=== PATIENT | male | born 1935 | race Caucasian/White ===

== ENCOUNTER → 2016-11-01 | Outpatient (CLI) | payer OTHER | LOC: BMCIMAGING 16:57 | PROVIDERS: ATTEND Family Medicine | DX: S69.91XA Unspecified injury of right wrist, hand and finger(s), initial encounter (principal) ==

== ENCOUNTER → 2017-01-24 | Outpatient (CLI) | payer OTHER | LOC: BMCIMAGING 11:31 | PROVIDERS: ATTEND Family Medicine | DX: R53.83 Other fatigue (principal); R50.9 Fever, unspecified ==

== ENCOUNTER 2017-03-16 20:22 | Observation (INO) | payer OTHER ==
--- NOTE | 2017-03-16 20:42 | CPEKG ---
Heart Rate: 83 RR Interval: 723 P-R Interval: 200 QRSD Interval: 82 QT Interval: 352 QTC Interval: 414 P Castaner: -60 QRS Castaner: -1 T Wave Castaner: 40 EKG Severity - OTHERWISE NORMAL ECG - EKG Impression: SINUS OR ECTOPIC ATRIAL RHYTHM Electronically Signed By: Toni Marrero 16-Mar-2017 22:41:12
--- NOTE | 2017-03-16 20:49 | EDPHY ---
H & P Stated Complaint: c/o rapid HR at night, saw pcp started holter monitor today. Time Seen by Provider: 03/16/17 20:44 - Personal History Tetanus Vaccine Date: 2013 - Medical/Surgical History Hx Asthma: No Hx Chronic Respiratory Disease: No Hx Diabetes: No Hx Cardiac Disease: No Hx Renal Disease: No Hx Cirrhosis: No Hx Alcoholism: No Hx HIV/AIDS: No Hx Splenectomy or Spleen Trauma: No Other PMH: HTN, GERD, inguanal hernias - Social History Smoking Status: Never smoked Constitutional: Initial Vital Signs Temperature (C) 37 C 03/16/17 20:27 Heart Rate 95 03/16/17 20:27 Respiratory Rate 16 03/16/17 20:27 Blood Pressure 161/86 H 03/16/17 20:27 O2 Sat (%) 93 03/16/17 20:27 O2 Delivery Mode Room Air Allergies/Adverse Reactions: No Known Allergies Allergy (Unverified 07/03/10 21:19) Home Medications: Medication Instructions Recorded Atorvastatin Calcium [Lipitor 10 10 mg PO DAILY 01/05/15 mg (*)] Cholecalciferol Vit D3 [Vitamin D3 1,000 units PO DAILY 01/05/15 (*)] Multivitamins [Multivitamin (*)] 1 each PO DAILY 01/05/15 Diltiazem Xr [Dilacor Xr] 240 mg PO DAILY 03/16/17 Ibuprofen [Advil] 200 mg PO HS 03/16/17 Lisinopril [Zestril 40 mg (*)] 40 mg PO DAILY 03/16/17 Omeprazole [Prilosec 20 mg] 20 - 40 mg PO DAILY PRN 03/16/17 Psyllium Husk (with Sugar) 2 each PO HS 03/16/17 [Metamucil Packet] Ranitidine HCl [Zantac] 150 mg PO HS PRN 03/16/17 Medical Decision Making ED Course/Re-evaluation: CHIEF COMPLAINT: Rapid heart rate at night HISTORY OF PRESENT ILLNESS: This patient is an 82 year old male complaining of rapid heart rate in the evenings six times over the last 10 days. Estimates around 150bpm. He has had a couple prior episodes of tachycardia in the past, first noted when he was hospitalized three years ago for a complicated situation. He states he was checked for atrial fibrillation at that time, but evaluation was negative at that time. His current episodes area usually preceded by extreme fatigue. He endorses lightheadedness and dizziness. He has noted occasional irregularity in his heartbeat. He was evaluated by his primary care provider earlier today, and was given a Holter monitor. Lab work done at the time is still pending. The patient denies chest pain, shortness of breath, vomiting, or other associated symptoms. REVIEW OF SYSTEMS: A 10 point review of systems was performed and is negative with the exception of the elements mentioned in the history of present illness. PHYSICAL EXAM: General Appearance: Alert, well hydrated, appropriate, and non-toxic appearing. Head: Atraumatic without scalp tenderness or obvious injury Eyes: Pupils equal, round, reactive to light and accommodation, EOMI, no trauma , no injection. Ears: Clear bilaterally, no perforation, normal landmarks Nose: Atraumatic, no rhinorrhea, clear. Throat: There is no erythema or exudates, no lesions, normal tonsils, mucus membranes moist. Neck: Supple, non-tender, no lymphadenopathy. Respiratory: No retractions, no distress, no wheezes, and no accessory muscle use. Lungs are clear to auscultation bilaterally. Cardiovascular: Regular rate and rhythm, no murmurs, rubs, or gallops. Good capillary refill all extremities. Gastrointestinal: Abdomen is soft, non-tender, non-distended, no masses, no rebound, no guarding, no peritoneal signs. Musculoskeletal: Normal active ROM of all extremities, atraumatic. Neurological: Alert, appropriate, and interactive. Nonfocal neuro exam. Skin: No rashes, good turgor, no nodules on palpation. PAST MEDICAL HISTORY: Hypertension, GERD, inguinal hernias PAST SURGICAL HISTORY: Noncontributory FAMILY HISTORY: Significant for atrial fibrillation in mother. SOCIAL HISTORY: . at bedside. Lives in [place]. DIFFERENTIAL DIAGNOSIS: The differential diagnosis for the patient's narrow complex tachycardia included but was not limited to various causes of sinus tachycardia such as dehydration and medicines, SVT, atrial flutter, atrial fibrillation, pulmonary causes. MEDICAL DECISION MAKIN82 year old male presents with multiple episodes of rapid irregular heartbeat with associated lightheadedness and fatigue. Plan for EKG, labs including CBC, BMP, Troponin, BNP, and Mg. The 12 lead EKG was interpreted by myself. See hard copy and/or "tracemaster" electronic copy for interpretation. Rate 83. Sinus or ectopic atrial rhythm. Spoke with Dr. Whiting, hospitalist. He accepts admission for possible new onset atrial fibrillation. Departure - Departure Disposition: [facility] Inpatient Acute Clinical Impression: New onset atrial fibrillation, Dizziness, Episodic lightheadedness Condition: Fair Report Scribed for: Toni Marrero Report Scribed by: Sheri Lee Date of Report: 03/16/17 Time of Report: 20:48
[2017-03-16 21:40] LABS: % IMMATURE GRANULYOCYTES 0.2 % (0.0-1.1); ABSOLUTE IMMATURE GRANULOCYTES 0.01 10^3/uL (0.00-0.10); ADD DIFF? NO; ADD MORPH? NO; ADD SCAN? NO; ATYPICAL LYMPHOCYTE FLAG 10 (0-99); FRAGMENT RBC FLAG 0 (0-99); HEMATOCRIT 45.4 % (40.0-51.0); HEMOGLOBIN 15.9 g/dL (13.7-17.5); LEFT SHIFT FLG 0 (0-99); LIPEMIA HEMOLYSIS FLAG 90 (0-99); MEAN CELL VOLUME 94.2 fL (81.5-99.8); MEAN PLATELET VOLUME 9.3 fL (8.7-11.7); PLATELET CLUMPS FLAG 10 (0-99); PLATELET COUNT 225 10^3/uL (150-400); RED BLOOD CELL COUNT 4.82 10^6/uL (4.40-6.38); RED CELL DISTRIBUTION WIDTH 12.1 % (11.5-15.2)
[2017-03-16 21:54] LABS: ANION GAP 12 mEq/L (8-16); CALCIUM 9.7 mg/dL (8.5-10.4); CARBON DIOXIDE 23 mEq/l (22-31); CHLORIDE 103 mEq/L (97-110); CREATININE 0.7 mg/dL (0.7-1.3); GLOMERULAR FILTRATION RATE > 60; GLUCOSE 108 mg/dL (70-100); POTASSIUM 3.8 mEq/L (3.5-5.2); SODIUM 138 mEq/L (134-144)
[2017-03-16 22:06] LABS: TROPONIN I < 0.012 ng/mL (0.000-0.034)
[2017-03-16] MEDS ORDERED: ONDANSETRON DISINTEGRATING 4 MG TAB PO PRN (22:57)
[2017-03-16] MEDS ORDERED: ACETAMINOPHEN 325 MG TAB PO PRN (22:57)
[2017-03-16] MEDS ORDERED: ONDANSETRON 4 MG/2 ML VIAL IVP PRN (22:57)
--- NOTE | 2017-03-16 23:41 | PDGENHP ---
History and Physical - Chief Complaint Palpitations - History of Present Illness 82 yo M w/ hx of HTN presents with several episodes of palpitations. Patient reports noticing a fast heart rate 4 of the last 10 nights upon laying down to go to sleep. He went to his PCP today and had a Holter monitor placed. He returned home and felt recurrence of symptoms so he came to the ED, as instructed by his PCP. He denies chest pain or shortness of breath during these episodes. Additionally, he denies cough, orthopnea, POPE, and symptoms of recent infection. He denies prior history of heart problems or arrhythmias. History Information - Allergies/Home Medication List Allergies/Adverse Reactions: No Known Allergies Allergy (Unverified 07/03/10 21:19) Home Medications: Atorvastatin Calcium [Lipitor 10 mg (*)] 10 mg PO DAILY 01/05/15 [Last Taken ] Cholecalciferol Vit D3 [Vitamin D3 (*)] 1,000 units PO DAILY 01/05/15 [Last Taken 03/16/17] Multivitamins [Multivitamin (*)] 1 each PO DAILY 01/05/15 [Last Taken 03/16/17] Diltiazem Xr [Dilacor Xr] 240 mg PO DAILY 03/16/17 [Last Taken 03/16/17] Ibuprofen [Advil] 200 mg PO HS 03/16/17 [Last Taken 03/15/17] Lisinopril [Zestril 40 mg (*)] 40 mg PO DAILY 03/16/17 [Last Taken 03/16/17] Omeprazole [Prilosec 20 mg] 20 - 40 mg PO DAILY PRN 03/16/17 [Last Taken ] Psyllium Husk (with Sugar) [Metamucil Packet] 2 each PO HS 03/16/17 [Last Taken 03/15/17] Ranitidine HCl [Zantac] 150 mg PO HS PRN 03/16/17 [Last Taken Unknown] I have personally reviewed and updated: family history, medical history - Past Medical History hypertension - Family History Positive for: CAD - Social History Smoking Status: Never smoked Alcohol Use: Occasionally Drug Use: None Review of Systems ROS: 10pt was reviewed & negative except for what was stated in HPI & below Physical Exam Temp Pulse Resp BP Pulse Ox 37.0 C 64 18 152/93 H 94 08/14/17 23:24 03/16/17 23:24 03/16/17 23:24 03/16/17 23:24 03/16/17 23:24 Constitutional: no apparent distress, appears nourished Eyes: PERRL, EOMI Ears, Nose, Mouth, Throat: moist mucous membranes, no oral mucosal ulcers Cardiovascular: regular rate and rhythym, no murmur, rub, or gallop, No JVD, No edema Respiratory: no respiratory distress, clear to auscultation Gastrointestinal: normoactive bowel sounds, soft, non-tender abdomen Skin: warm, no rashes or abrasions Musculoskeletal: full muscle strength, no muscle tenderness Neurologic: AAOx3, CN II-XII Intact Psychiatric: interacting appropriately, not anxious Lab Data & Imaging Review 03/16/17 21:20 03/16/17 21:20 WBC 6.15 10^3/uL (3.80-9.50) 03/16/17 21:20 RBC 4.82 10^6/uL (4.40-6.38) 03/16/17 21:20 Hgb 15.9 g/dL (13.7-17.5) 03/16/17 21:20 Hct 45.4 % (40.0-51.0) 03/16/17 21:20 MCV 94.2 fL (81.5-99.8) 03/16/17 21:20 MCH 33.0 pg (27.9-34.1) 03/16/17 21:20 MCHC 35.0 g/dL (32.4-36.7) 03/16/17 21:20 RDW 12.1 % (11.5-15.2) 03/16/17 21:20 Plt Count 225 10^3/uL (150-400) 03/16/17 21:20 MPV 9.3 fL (8.7-11.7) 03/16/17 21:20 Neut % (Auto) 51.9 % (39.3-74.2) 03/16/17 21:20 Lymph % (Auto) 31.4 % (15.0-45.0) 03/16/17 21:20 Harding % (Auto) 11.9 % (4.5-13.0) 03/16/17 21:20 Eos % (Auto) 3.6 % (0.6-7.6) 03/16/17 21:20 Baso % (Auto) 1.0 % (0.3-1.7) 03/16/17 21:20 Nucleat RBC Rel Count 0.0 % (0.0-0.2) 03/16/17 21:20 Absolute Neuts (auto) 3.20 10^3/uL (1.70-6.50) 03/16/17 21:20 Absolute Lymphs (auto) 1.93 10^3/uL (1.00-3.00) 03/16/17 21:20 Absolute Monos (auto) 0.73 10^3/uL (0.30-0.80) 03/16/17 21:20 Absolute Eos (auto) 0.22 10^3/uL (0.03-0.40) 03/16/17 21:20 Absolute Basos (auto) 0.06 10^3/uL (0.02-0.10) 03/16/17 21:20 Absolute Nucleated RBC 0.00 10^3/uL (0-0.01) 03/16/17 21:20 Immature Gran % 0.2 % (0.0-1.1) 03/16/17 21:20 Immature Gran # 0.01 10^3/uL (0.00-0.10) 03/16/17 21:20 Sodium 138 mEq/L (134-144) 03/16/17 21:20 Potassium 3.8 mEq/L (3.5-5.2) 03/16/17 21:20 Chloride 103 mEq/L (97-110) 03/16/17 21:20 Carbon Dioxide 23 mEq/l (22-31) 03/16/17 21:20 Anion Gap 12 mEq/L (8-16) 03/16/17 21:20 BUN 16 mg/dL (7-23) 03/16/17 21:20 Creatinine 0.7 mg/dL (0.7-1.3) 03/16/17 21:20 Estimated GFR > 60 03/16/17 21:20 Glucose 108 mg/dL (70-100) H 03/16/17 21:20 Calcium 9.7 mg/dL (8.5-10.4) 03/16/17 21:20 Magnesium 2.0 mg/dL (1.6-2.3) 03/16/17 21:20 Troponin I < 0.012 ng/mL (0.000-0.034) 03/16/17 21:20 NT-Pro-B Natriuret Pep 87 pg/mL (0-450) 03/16/17 21:20 Visualized and Interpreted EKG results: Yes EKG Interpretation: Positive for: normal sinsus rhythm Assessment & Plan Assessment: 82 yo M w/ hx of HTN presenting with episodes of palpitations and tachycardia. Plan: 1. Palpitations - New problem, no prior diagnosis of SVT. ECG in NSR upon admission here, but patient does have Holter monitor in place, which should have captured his episode from earlier in the day. No symptoms to suggest ischemic etiology, troponin and BNP unremarkable. Review of prior records shows echocardiogram with only mild diastolic dysfunction in 2015. - Monitor on telemetry - Repeat echocardiogram - Cardiology consult 2. HTN - On Diltiazem and Lisinopril as an outpatient. Diet- Regular Code - Full Ppx - LMWH Dispo - Admit to observation
[2017-03-17 05:32] LABS: % IMMATURE GRANULYOCYTES 0.2 % (0.0-1.1); ABSOLUTE IMMATURE GRANULOCYTES 0.01 10^3/uL (0.00-0.10); ADD DIFF? NO; ADD MORPH? NO; ADD SCAN? NO; ATYPICAL LYMPHOCYTE FLAG 10 (0-99); FRAGMENT RBC FLAG 0 (0-99); HEMATOCRIT 43.6 % (40.0-51.0); HEMOGLOBIN 15.4 g/dL (13.7-17.5); LEFT SHIFT FLG 0 (0-99); LIPEMIA HEMOLYSIS FLAG 90 (0-99); MEAN CELL HEMOGLOBIN 33.4 pg (27.9-34.1); MEAN CELL HEMOGLOBIN CONCENTR. 35.3 g/dL (32.4-36.7); MEAN CELL VOLUME 94.6 fL (81.5-99.8); MEAN PLATELET VOLUME 9.3 fL (8.7-11.7); PLATELET CLUMPS FLAG 10 (0-99); PLATELET COUNT 206 10^3/uL (150-400); RED BLOOD CELL COUNT 4.61 10^6/uL (4.40-6.38); RED CELL DISTRIBUTION WIDTH 12.4 % (11.5-15.2)
[2017-03-17 05:42] LABS: ANION GAP 10 mEq/L (8-16); CALCIUM 9.6 mg/dL (8.5-10.4); CARBON DIOXIDE 24 mEq/l (22-31); CHLORIDE 105 mEq/L (97-110); CREATININE 0.7 mg/dL (0.7-1.3); GLOMERULAR FILTRATION RATE > 60; GLUCOSE 91 mg/dL (70-100); MAGNESIUM 1.9 mg/dL (1.6-2.3); POTASSIUM 4.2 mEq/L (3.5-5.2); SODIUM 139 mEq/L (134-144)
[2017-03-17 08:40] VITALS: TEMP 98
[2017-03-17] MEDS ORDERED: ENOXAPARIN 30 MG/0.3 ML SYR SC SCH (09:00)
[2017-03-17 11:36] VITALS: BP 142/85; PULSE 73; RESP 18; O2SAT 95
[2017-03-17] MEDS ORDERED: ASPIRIN EC 81 MG TAB PO SCH (13:30)
--- NOTE | 2017-03-17 13:36 | PDDCSUM ---
Discharge Summary Discharge Summary: Dates of service 03/16-03/17/17 Discharge dx: # palpitations # chronic medical issues: HTN, HLD, GERD, diastolic dysfunction Procedures performed: echocardiogram Consultations: cardiology Hospital course by problem: # palpitations: with no events on tele, holter reviewed and no significant events, echo unremarkable other than continued diastolic dysfunction with preserved EF. Reviewed plan with cardiology who recommend continued asa for now and f/u with PCP and cardiology through PCP # chronic medical issues: continue op medications # diastolic dysfunction: with preserved EF and no e/o decompensation Dc home f/u with PCP
[2017-03-17] MEDS ORDERED: ATORVASTATIN CALCIUM 10 MG TAB PO SCH (13:45)
[2017-03-17] MEDS ORDERED: LISINOPRIL 40 MG TAB PO SCH (13:45)
[2017-03-17] MEDS ORDERED: DILTIAZEM XR 240 MG CAP PO SCH (13:45)
--- NOTE | 2017-03-17 16:38 | ECHO ---
[id number] + + [address] : : [place] [address] : : [phone] + + Adult Echocardiographic Report + ----+ :Name: PACHECO MALDONADO DStudy Date: 03/17/2017 12:48 PM : : Hospital Admission Number: [id number] Location: 382: :: 1935 Gender: Male Height: 70 in : :Age: 82 yrs Race: WH Weight: 165 lb : :Reason For Study: Eval LV Fx : : BSA: 1.9 meters2 : :History: New arrhythmia/palpitation : + ----+ MMode/2D Measurements \T\ Calculations IVSd: 0.98 cm LVIDd: 4.0 cm FS: 39.4 % Ao root diam: 2.9 cm LVPWd: 1.0 cm LVIDs: 2.4 cm EDV(Teich): 70.1 ml ACS: 1.9 cm ESV(Teich): 20.7 ml EF(Teich): 70.5 % Normal Measurement Values: + + :LVIDd (3.5-5.7cm) IVSd (0.6-1.1cm) LVPWd (0.6-1.1cm) Aortic Root (2.0-3.7cm)Left Atrium (1.5-4.0cm): :LV Vol(d) (76-115ml) LV Vol(s) (29-48ml) Ejec Fraction (50-65%)PV Flako (0.6- 1.2m/s) TV Flako (0.4-1.0m/s) : :MV E Flako (0.8-1.0m/s)MV A Flako (0.3-1.0m/s)LVOT Flako (0.7-1.2m/s) Asc Ao Flako ( 0.9-1.8m/s) : + + Doppler Measurements \T\ Calculations MV E max flako: Ao V2 max: LV V1 max: PA V2 max: 67.1 cm/sec 129.1 cm/sec 81.9 cm/sec 79.6 cm/sec MV A max flako: Ao max P.7 mmHg LV V1 max PG: PA max P.7 cm/sec 2.7 mmHg 2.5 mmHg MV E/A: 0.69 Left Ventricle The left ventricle is normal in size. There is normal left ventricular wall thickness. The left ventricular ejection fraction is normal. There is Doppler evidence for diastolic dysfunction. Ejection Fraction = 70%. The left ventricular wall motion is normal. Right Ventricle The right ventricle is normal in size and function. Atria The left atrial size is normal. Right atrial size is normal. Mitral Valve The mitral valve is normal in structure and function. There is no evidence of mitral valve prolapse. There is no mitral valve stenosis. There is trace mitral regurgitation. Tricuspid Valve Normal tricuspid valve. No tricuspid regurgitation. Aortic Valve The aortic valve is normal in structure and function. There is no aortic stenosis. There is no aortic insufficiency. Pulmonic Valve The pulmonic valve is normal in structure and function. There is no pulmonic valvular regurgitation. Great Vessels The aortic root is normal size. Pericardium/Pleural There is no pericardial effusion. Conclusion A complete two-dimensional transthoracic echocardiogram was performed (2D, M-mode, Doppler and color flow Doppler). The left ventricular ejection fraction is normal. There is Doppler evidence for diastolic dysfunction. Ejection Fraction = 70%. The left ventricular wall motion is normal. The right ventricle is normal in size and function. Normal appearing valvular structures. There is trace mitral regurgitation. There is no pericardial effusion. Final Reading Physician: Luzma Bolton signed on 03/17/2017 04:37 PM Ordering Physician: Marck Rasheed Performed By: Alcon Nolan, RDCS
--- NOTE | 2017-03-17 22:24 | GCON ---
[f rep st] CONSULTATION CARDIOLOGY CONSULTATION DATE OF CONSULTATION: 03/17/2017 REASON FOR CONSULTATION: We were asked by Dr. Hdez of [facility] to evaluate the nicki hoffmann for his perceived elevated heart rates. HISTORY OF PRESENT ILLNESS: The patient is an 82-year-old male with a past medical history listed a s hypertension and dyslipidemia, who has noted episodes of elevated heart rates for the past 4/10 ev enings. He reports onset of symptoms in the early evening. He will note it as a racing heart with a heart rate 120-130. He does not have objective data, but qualitatively has felt his pulse and fel t it to be racing. He denies any irregular heartbeats. He may have noted some slight lightheadedne ss, but no presyncope or syncope. He denies any associated chest pains or dyspnea. Symptoms typica lly come about at rest. He has not had any exertional symptoms, and remains active with working suzan und his house, as well as going on walks and hikes 2-3 times a week for 45 minutes. He denies any P ND, orthopnea, peripheral edema or dyspnea. He has not had any recent illness or surgeries. He pre sented to the Emergency Department after telling his primary care about his episode. At that visit yesterday he actually had a Holter put on, and is currently still wearing this. MEDICATIONS: Atorvastatin, vitamin D3, multivitamin, diltiazem, ibuprofen, lisinopril, omeprazole, psyllium, ranitidine. ALLERGIES: No known drug allergies. PAST MEDICAL HISTORY: 1. Hypertension. 2. Dyslipidemia. FAMILY HISTORY: Positive for early CAD in his father who of an MT at age 51. He was a heavy d francesco and heavy smoker. 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 He is a never smoker. He reports occa sional alcohol intake. REVIEW OF SYSTEMS: As per HPI. A complete 10-point review of systems was obtained, and is negative except for what is dictated in HPI. PHYSICAL EXAM: VITAL SIGNS: BP of 142/85, heart rate 73, respirations 18, O2 saturation 95% on charlie m air. GENERAL: He is a very pleasant male, in no apparent distress. HEAD: Normocephalic, atraum atic. EYES: Without scleral icterus. NECK: Supple with no JVD. Trachea is midline. HEART: Reg ular rate and rhythm with a 2/6 systolic ejection murmur. LUNGS: Clear to auscultation. ABDOMEN: Soft. Normoactive bowel sounds. : Without Velez present. SKIN: Warm and dry. PSYCH: Normal mood and affect. NEURO: No focal deficits detected. LABORATORY DATA: CBC with WBC 5.55, hemoglobin 15.4, hematocrit 43.6, platelet count 206. BMP with sodium 139, potassium 4.2, chloride 105, CO2 24, BUN 17, creatinine 0.7, glucose 91. NT proBNP of 87. A 12-lead ECG, personally interpreted, demonstrates sinus rhythm with a first-degree AV block. Diff use ST-T wave abnormalities. Echo from 01/05/2015 demonstrates EF of 70% to 75%. Doppler evidence of diastolic dysfunction, mild MR. Echo from this admission still pending, but preliminarily reported as no significant change fr om previous echo from 2014. Telemetry, personally reviewed, shows sinus rhythm. IMPRESSION AND PLAN: The patient is an 82-year-old male who is admitted with perceived tachycardia. 1. Tachycardia. There is no evidence of any arrhythmias based on telemetry and ECG monitoring. We reviewed options, and the patient would like to follow up with his primary care physician, Dr. Millicent rubalcava, after completion of Holter monitoring. All records from this hospitalization will be sent to his PCP's office. He is advised on daily aspirin. Though there is no objective data showing atrial fibrillation, he does have an elevated CHADS-VASc with age and hypertension, and therefore he is ag reeable to start aspirin 81 mg p.o. daily for stroke prophylaxis. 2. Hypertension. Blood pressure appears adequately controlled at this point. /[id number]/MODL
== END 2017-03-17 14:52 | disposition home or self-care (01) ==
LOC: F3E 23:30
PROVIDERS: ADMIT Internal Medicine; ATTEND Internal Medicine
DX: R00.2 Palpitations (principal); I10 Essential (primary) hypertension; E78.5 Hyperlipidemia, unspecified; K21.9 Gastro-esophageal reflux disease without esophagitis; I51.9 Heart disease, unspecified; Z82.49 Family history of ischemic heart disease and other diseases of the circulatory system
CPT/HCPCS: 93005; 93306; G0378; J1650

== ENCOUNTER → 2018-10-12 | Outpatient (CLI) | payer OTHER | LOC: FIMAGING 13:51 | PROVIDERS: ATTEND Family Medicine | DX: G95.89 Other specified diseases of spinal cord (principal); R93.5 Abnormal findings on diagnostic imaging of other abdominal regions, including retroperitoneum; D48.9 Neoplasm of uncertain behavior, unspecified; F51.01 Primary insomnia ==